=== PATIENT | female | born 2000 | race Caucasian/White ===

== ENCOUNTER → 2020-09-11 06:51 | Outpatient (CLI) | payer SELFPAY ==
[2020-09-11 22:59] LABS: SARS-CoV-2 RNA PCR Negative
== END ==
PROVIDERS: PCP Family Medicine; Visit Provider Family Medicine
DX: R50.9 Fever, unspecified (principal); Z20.822 Contact with and (suspected) exposure to COVID-19
CPT/HCPCS: C9803; U0003; U0005